=== PATIENT | male | born 1960 | race Caucasian/White ===

== ENCOUNTER 2018-12-18 08:46 | Emergency (ER) | payer OTHER ==
[~2018-12-18] VITALS: Ht 172.7 cm; Wt 113.4 kg
[2018-12-18] MEDS ORDERED: PENICILLIN G BENZATHINE LA 1.2 MU TBX IM ONE (10:30)
== END 2018-12-18 10:34 | disposition home or self-care (01) ==
LOC: ER 08:46
DX: J02.0 Streptococcal pharyngitis (principal)
CPT/HCPCS: 99282; J0561